=== PATIENT | female | born 1985 | race African-American/Black ===

== ENCOUNTER 2021-10-02 08:26 | Inpatient (IN) ==
[2021-10-02] MEDS ORDERED: FAMOTIDINE 20 MG/2 ML VIAL IV ONE (08:47)
[2021-10-02] MEDS ORDERED: CLINDAMYCIN INJ 900 MG/50 ML PREMIX IV ONE (08:47)
[2021-10-02] MEDS ORDERED: CITRIC ACID/SODIUM CITRATE 30 ML UDCUP PO ONE (08:47)
[2021-10-02] MEDS: LACTATED RINGERS 1,000 ML IV SCH ×2 (09:00→09:41)
[2021-10-02 09:12] LABS: Basophils % 0.3 % (0.0-0.8); Eosinophils % 0.3 % (0.00-10.9); Hematocrit 34.3 VOL% (35.7-47.0); Immature Granulocytes % 0.3 %; Immature Granulocytes Absolute 0.02 #; Lymphocytes # 2.7 10*3/uL (1.4-4.0); Mean Corpuscular HGB Conc 32.1 GM/DL (32-36); Mean Corpuscular Volume 88.9 FL (87-102); Mean Platelet Volume 12.7 FL (9.6-12.0); Monocytes % 9.1 % (1.7-12.7); Platelet Count 164 T/CUMM (130-400); Red Blood Count 3.86 MC/CUMM (3.8-5.5); Red Cell Distribution Width 13.9 % (9.3-17.3); White Blood Count 5.9 T/CUMM (4-12)
[2021-10-02] MEDS ORDERED: BUPIVACAINE SPINAL 0.75% 2 ML AMP SPINAL ONE (09:30)
[2021-10-02 09:33] LABS: Albumin 2.5 G/DL (3.4-5.0); Bilirubin,Total 1.4 MG/DL (0.20-1.00); Calcium 8.8 MG/DL (8.5-10.1); Osmolality,Calculated 277.3 MOS/KG (273-304); Potassium 3.4 MMOL/L (3.5-5.1); Total Protein 6.5 G/DL (6.4-8.2)
[2021-10-02] MEDS ORDERED: OXYTOCIN/LR 20 UNIT/1,000 ML BAG IV ONE ×3 (09:34→12:11)
[2021-10-02] MEDS ORDERED: SODIUM CHLORIDE 0.9% 0 ML IV ONE (09:34)
[2021-10-02] MEDS ORDERED: TRANEXAMIC ACID 1,000 MG/10 ML VIAL ONE (09:34)
[2021-10-02] MEDS ORDERED: miSOPROStoL 200 MCG TABLET ONE (09:34)
[2021-10-02] MEDS ORDERED: CARBOPROST TROMETHAMINE 250 MCG/ML AMP IM ONE (09:35)
[2021-10-02] MEDS ORDERED: METHYLERGONOVINE 0.2 MG/1 ML AMP ONE (09:35)
[2021-10-02] MEDS ORDERED: PHENYLEPHRINE 10 MG/1 ML VIAL IV ONE (10:36)
[2021-10-02] MEDS ORDERED: SODIUM CHLORIDE 0.9% 250 ML IV ONE (10:54)
[2021-10-02] MEDS ORDERED: ONDANSETRON 4 MG/2 ML VIAL ONE (10:57)
[2021-10-02] MEDS ORDERED: LACTATED RINGERS 1,000 ML IV ONE (10:59)
[2021-10-02 11:11] LABS: Cord Venous Blood HCO3 22.1 MMOL/L; Cord Venous Blood PCO2 47.3 MMHG; Cord Venous Blood PO2 30.5
[2021-10-02 11:21] LABS: Bacteria,Urine Moderate /HPF (Few); Bilirubin,Urine Negative (Negative); Blood, Urine Negative (Negative); Glucose,Urine (UA) Negative (Negative); Ketones,Urine 20 mg/dL (Negative); Mucus,Urine Many /LPF (Occasional); Nitrite,Urine Negative (Negative); Protein,Urine 30 MG/DL; RBC,Urine 2 /HPF (0-4); Urine Appearance Slightly Hazy (Clear); Urine Color Yellow (Yellow); Urine Specific Gravity 1.012 (1.001-1.035); Urine Urobilinogen < 2.0 EU/DL (0.2-1.0)
[2021-10-02] MEDS ORDERED: IBUPROFEN 800 MG TABLET PO PRN (11:36)
[2021-10-02] MEDS ORDERED: SIMETHICONE CHEW 80 MG TABLET PO PRN (11:36)
[2021-10-02] MEDS ORDERED: ACETAMINOPHEN 325 MG TABLET PO PRN (11:36)
[2021-10-02] MEDS ORDERED: GLUCAGON 1 MG VIAL IM PRN (11:36)
[2021-10-02] MEDS ORDERED: oxyCODONE/ACETAMINOPHEN 5-325 MG TABLET PO PRN (11:36)
[2021-10-02] MEDS ORDERED: ONDANSETRON 4 MG/2 ML VIAL IV PRN (11:36)
[2021-10-02] MEDS ORDERED: MAGNESIUM HYDROXIDE SUSP 30 ML UDCUP PO PRN (11:36)
[2021-10-02] MEDS ORDERED: RHO(D) IMMUNE GLOBULIN 300 MCG SYRINGE IM ONE (11:36)
[2021-10-02] MEDS ORDERED: DEXTROSE 50% 25 GM/50 ML SYRINGE IV PRN (11:47)
[2021-10-02] MEDS ORDERED: LACTATED RINGERS 1,000 ML IV SCH (12:00)
[2021-10-02] MEDS: ACETAMINOPHEN 500 MG TABLET PO SCH ×2 (14:37→19:50)
[2021-10-02] MEDS: KETOROLAC 30 MG/1 ML VIAL IV SCH ×2 (14:39→19:49)
[2021-10-02] MEDS: FUROSEMIDE 20 MG TABLET PO SCH (15:48)
[2021-10-02] MEDS: CLINDAMYCIN INJ 900 MG/50 ML PREMIX IV SCH ×2 (16:40→22:47)
[2021-10-02] MEDS ORDERED: ACETAMINOPHEN 500 MG TABLET PO SCH (17:00)
[2021-10-02] MEDS: INSULIN REGULAR 100 UNIT/ML SUBCUT SCH ×2 (17:42→21:12)
[2021-10-02 20:43] LABS: Basophils % 0.3 % (0.0-0.8); Eosinophils % 0.4 % (0.00-10.9); Hematocrit 27.9 VOL% (35.7-47.0); Immature Granulocytes % 0.1 %; Immature Granulocytes Absolute 0.01 #; Lymphocytes # 1.8 10*3/uL (1.4-4.0); Mean Corpuscular HGB Conc 32.3 GM/DL (32-36); Mean Corpuscular Volume 89.7 FL (87-102); Mean Platelet Volume 12.6 FL (9.6-12.0); Monocytes % 6.6 % (1.7-12.7); Neutrophils % 69.6 % (38.7-73.9); Platelet Count 129 T/CUMM (130-400); Red Blood Count 3.11 MC/CUMM (3.8-5.5); Red Cell Distribution Width 13.7 % (9.3-17.3); White Blood Count 7.7 T/CUMM (4-12)
[2021-10-02] MEDS: DOCUSATE SODIUM 100 MG CAPSULE PO SCH (21:12)
[2021-10-03] MEDS: KETOROLAC 30 MG/1 ML VIAL IV SCH ×2 (02:28→08:28)
[2021-10-03] MEDS: ACETAMINOPHEN 500 MG TABLET PO SCH ×2 (02:30→08:28)
[2021-10-03] MEDS: CLINDAMYCIN INJ 900 MG/50 ML PREMIX IV SCH (04:19)
[2021-10-03] MEDS ORDERED: GLUCAGON 1 MG VIAL IM PRN (04:57)
[2021-10-03] MEDS ORDERED: DEXTROSE 50% 25 GM/50 ML VIAL IV PRN (04:57)
[2021-10-03 05:16] LABS: Basophils % 0.4 % (0.0-0.8); Eosinophils # 0.1 10*3/uL (0.0-0.87); Eosinophils % 0.7 % (0.00-10.9); Hematocrit 28.5 VOL% (35.7-47.0); Hemoglobin 8.8 GM/DL (12.0-16.0); Immature Granulocytes % 0.5 %; Immature Granulocytes Absolute 0.04 #; Lymphocytes # 1.7 10*3/uL (1.4-4.0); Lymphocytes % 20.2 % (21.3-54.2); Mean Corpuscular HGB Conc 30.9 GM/DL (32-36); Mean Corpuscular Volume 93.1 FL (87-102); Mean Platelet Volume 12.6 FL (9.6-12.0); Monocytes % 6.6 % (1.7-12.7); Neutrophils % 71.6 % (38.7-73.9); Platelet Count 129 T/CUMM (130-400); Red Blood Count 3.06 MC/CUMM (3.8-5.5); Red Cell Distribution Width 13.9 % (9.3-17.3); White Blood Count 8.4 T/CUMM (4-12)
[2021-10-03] MEDS: INSULIN REGULAR 100 UNIT/ML SUBCUT SCH ×4 (07:34→21:18)
[2021-10-03] MEDS: DOCUSATE SODIUM 100 MG CAPSULE PO SCH (08:27)
[2021-10-03] MEDS: FERROUS SULFATE 325 MG TABLET PO SCH ×2 (08:27→21:18)
[2021-10-03] MEDS: MULTIVITAMIN (PRENATAL) TABLET PO SCH (08:27)
[2021-10-03] MEDS: FUROSEMIDE 20 MG TABLET PO SCH (08:28)
[2021-10-03] MEDS ORDERED: BISMUTH SUBSALICYLATE 30 ML/524 MG 240 ML/BOTTLE PO PRN (14:04)
[2021-10-03] MEDS: oxyCODONE/ACETAMINOPHEN 5-325 MG TABLET PO PRN ×2 (16:01→21:20)
[2021-10-04] MEDS: DOCUSATE SODIUM 100 MG CAPSULE PO SCH ×2 (00:09→08:46)
[2021-10-04] MEDS: INSULIN REGULAR 100 UNIT/ML SUBCUT SCH (07:28)
[2021-10-04] MEDS: MULTIVITAMIN (PRENATAL) TABLET PO SCH (08:33)
[2021-10-04] MEDS: FERROUS SULFATE 325 MG TABLET PO SCH (08:33)
[2021-10-04] MEDS: FUROSEMIDE 20 MG TABLET PO SCH (08:33)
[2021-10-04 08:43] VITALS: BP 133/85
== END 2021-10-04 09:31 | disposition home or self-care (01) | DRG 785 ==
LOC: N.LD 08:26 → N.OB 14:39
PROVIDERS: ADMIT Obstetrics & Gynecology; ATTEND Obstetrics & Gynecology